=== PATIENT | female | born 1950 | race Two or more races ===

== ENCOUNTER 2016-10-10 08:20 | Emergency (ER) | payer MEDICAID ==
[2016-10-10 09:09] LABS: microscopic required? NO
[2016-10-10 09:16] LABS: BASOPHIL % 0.4 % (0-2); PLATELET COUNT 329 x10^3mcL (130-400); RED CELL DISTRIBUTION WIDTH 12.8 % (11.5-14.5)
[2016-10-10 09:17] LABS: urine erythrocyte NEGATIVE (NEGATIVE)
[2016-10-10 09:36] LABS: CALCIUM 8.9 mg/dL (8.5-10.1); CARBON DIOXIDE 33.2 mmol/L (21-32); CHLORIDE SERUM 104 mmol/L (98-107); CREATININE SERUM 0.7 mg/dL (0.6-1.0); GFR1 > 60 mL/min; GLUCOSE SERUM 106 mg/dL (74-106); POTASSIUM SERUM 3.4 mmol/L (3.5-5.1); SODIUM SERUM 141 mmol/L (136-145)
[2016-10-10 09:47] LABS: ALBUMIN 3.8 g/dL (3.4-5.0); ALKALINE PHOSPHATASE 110 U/L (46-116); ALT/SGPT 17 U/L (14-59); AMYLASE 65 U/L (25-115); AST/SGOT 17 U/L (15-37); BILIRUBIN TOTAL 0.2 mg/dL (0.20-1.00); CHOLESTEROL 173 mg/dL (<200); HDL CHOLESTEROL 47 mg/dL (40-60); LIPASE 182 IU/L (73-393); T4(THYROXINE) 9.3 ug/dL (4.7-13.3); TOTAL PROTEIN, SERUM 7.7 g/dL (6.4-8.2)
[2016-10-10 14:03] VITALS: BP 136/87
== END 2016-10-10 14:43 | disposition home or self-care (01) ==
LOC: ED 08:20
PROVIDERS: Emergency Medicine
DX: K80.20 Calculus of gallbladder without cholecystitis without obstruction (principal); M47.898 Other spondylosis, sacral and sacrococcygeal region; F17.200 Nicotine dependence, unspecified, uncomplicated; Z71.6 Tobacco abuse counseling
CPT/HCPCS: 36415; 83880; 99406; J0500; J1885

== ENCOUNTER 2020-01-13 08:18 | Emergency (ER) | payer MEDICAID ==
[~2020-01-13] VITALS: Ht 157.5 cm; Wt 56.7 kg
[2020-01-13 08:23] VITALS: Ht 157.5 cm; Wt 56.7 kg
[2020-01-13 09:06] LABS: BASOPHIL % 0.3 % (0-2); PLATELET COUNT 310 x10^3mcL (130-400); RED CELL DISTRIBUTION WIDTH 13.7 % (11.5-14.5)
[2020-01-13 09:07] LABS: CALCIUM 8.8 mg/dL (8.5-10.1); CARBON DIOXIDE 33.4 mmol/L (21-32); CHLORIDE SERUM 103 mmol/L (98-107); CREATININE SERUM 0.7 mg/dL (0.6-1.0); GLUCOSE SERUM 109 mg/dL (74-106); POTASSIUM SERUM 3.9 mmol/L (3.5-5.1); SODIUM SERUM 140 mmol/L (136-145)
[2020-01-13 09:11] LABS: ALBUMIN 3.8 g/dL (3.4-5.0); ALKALINE PHOSPHATASE 107 U/L (46-116); ALT/SGPT 23 U/L (14-59); AST/SGOT 20 U/L (15-37); BILIRUBIN TOTAL 0.36 mg/dL (0.20-1.00); LIPASE 136 IU/L (73-393); TOTAL PROTEIN, SERUM 7.9 g/dL (6.4-8.2)
[2020-01-13 09:27] LABS: microscopic required? YES; urine erythrocyte TRACE (NEGATIVE)
[2020-01-13 10:08] VITALS: BP 145/66
== END 2020-01-13 10:08 | disposition home or self-care (01) ==
LOC: ED 08:18
PROVIDERS: Emergency Medicine
DX: K29.70 Gastritis, unspecified, without bleeding (principal); G89.29 Other chronic pain; R10.12 Left upper quadrant pain